=== PATIENT | female | born 1940 | race Caucasian/White ===

== ENCOUNTER 2017-08-16 18:11 | Emergency (ER) | payer MEDICARE ==
[2017-08-16 18:34] VITALS: BP 132/66
--- NOTE | 2017-08-16 18:38 | UC ---
HPI Febrile Illness - HPI Summary HPI Summary: 77 YEAR OLD FEMALE PRESENTS WITH COUGH, NASAL CONGESTION AND HEADACHE AFTER COMING HOME FROM A TRIP. - History of Current Complaint Chief Complaint: UCRespiratory Time Seen by Provider: 08/16/17 18:35 Hx Obtained From: Patient Onset/Duration: Started Hours Ago Timing: Constant Initial Severity: Moderate Current Severity: Moderate Pain Scale Used: 0-10 Numeric - 2 Aggravating Factors: Nothing Alleviating Factors: Nothing Associated Signs and Symptoms: Chills, Cough, Drainage - Allergy/Home Medications Allergies/Adverse Reactions: Allergies Allergy/AdvReac Type Severity Reaction Status Date / Time No Known Allergies Allergy Verified 08/16/17 18:34 PMH/Surg Hx/FS Hx/Imm Hx Previously Healthy: Yes Endocrine/Hematology History: Denies: Hx Diabetes, Hx Thyroid Disease Cardiovascular History: Denies: Hx Hypertension Respiratory History: Denies: Hx Asthma, Hx Chronic Obstructive Pulmonary Disease (COPD) GI History: Denies: Hx Ulcer Musculoskeletal History: Denies: Hx Osteoporosis - Cancer History Cancer Type, 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 mastectomy left 2007 Infectious Disease History: No Infectious Disease History: Denies: Hx Clostridium Difficile, Hx Hepatitis, Hx Human Immunodeficiency Virus (HIV), Hx of Known/Suspected MRSA, Hx Shingles, Hx Tuberculosis, Hx Known/ Suspected VRE, Hx Known/Suspected VRSA, History Other Infectious Disease, Traveled Outside the [place] in Last 30 Days - Social History Alcohol Use: Occasionally Substance Use Type: Reports: None Smoking Status (MU): Never Smoked Tobacco Review of Systems Constitutional: Negative Skin: Negative Eyes: Negative ENT: Sore Throat, Nasal Discharge, Sinus Congestion, Sinus Pain/Tenderness Respiratory: Cough Cardiovascular: Negative Gastrointestinal: Negative Genitourinary: Negative Motor: Negative Neurovascular: Negative Musculoskeletal: Negative Neurological: Negative Psychological: Negative All Other Systems Reviewed And Are Negative: Yes Physical Exam Triage Information Reviewed: Yes Vital Signs: Initial Vital Signs Temp 37.1 C 08/16/17 18:31 Pulse 77 08/16/17 18:31 Resp 18 08/16/17 18:31 BP 132/66 08/16/17 18:31 Pulse Ox 98 08/16/17 18:31 Eye Exam: Normal ENT: Positive: Pharyngeal erythema, Nasal congestion, Nasal drainage Dental Exam: Normal Neck exam: Normal Neck: Positive: 1 Respiratory: Positive: Wheezing Cardiovascular Exam: Normal Abdominal Exam: Normal Musculoskeletal Exam: Normal Neurological Exam: Normal Psychological Exam: Normal Skin Exam: Normal Course/Dx - Diagnoses Clinic Provider Diagnoses: SINUSITIS. ALLERGIC RHINITIS Discharge - Discharge Plan Condition: Stable Disposition: HOME Prescriptions: Azithromyxin DAV (NF) [Z-Dav (Zithromax) 250 mg tabs #6] 2 tab PO .TODAY, THEN 1 DAILY #6 tab LoraTADine TAB(NF) [Claritin 10 MG TAB(NF)] 10 mg PO DAILY #30 tab guaiFENesin/CODIEN 100MG-10MG* [Robitussin AC 100Mg-10Mg*] 5 ml PO Q6H PRN #120 ml MDD 20 ml PRN Reason: Cough Patient Education Materials: Sinusitis (ED) Referrals: Steffi Baker MD [Primary Care Provider] -
== END 2017-08-16 19:08 | disposition home or self-care (01) ==
LOC: UCEAST 18:11
DX: J30.9 Allergic rhinitis, unspecified (principal); J32.9 Chronic sinusitis, unspecified
CPT/HCPCS: 99212; G0463

== ENCOUNTER 2017-12-08 22:32 | Emergency (ER) | payer MEDICARE ==
[2017-12-08] MEDS ORDERED: Morphine INJ* 4 MG/ML 1 ML CARPUJECT IV ONE (22:52)
[2017-12-08] MEDS ORDERED: Ondansetron INJ* 2 MG/ML VIAL IV ONE (22:52)
[2017-12-08] MEDS ORDERED: NS 0.9% 500 ML* 500 ML IV SCH (23:00)
[2017-12-08 23:40] LABS: Hematocrit 38 % (35-47); Hemoglobin 13.1 g/dl (12.0-16.0); Mean Corpuscular HGB Conc 34 g/dl (31-36); Mean Corpuscular Hemoglobin 32 pg (27-31); Mean Corpuscular Volume 93 fL (80-97); Mean Platelet Volume 8 um3 (7.4-10.4); Platelet Count 201 10^3/ul (150-450); Red Blood Count 4.08 10^6/ul (4.0-5.4); Red Cell Distribution Width 13 % (10.5-15); White Blood Count 7.2 10^3/ul (3.5-10.8)
[2017-12-08] MEDS ORDERED: Lidocaine 2% EPI 1:200000 MPF* 20 ML VIAL ONE (23:40)
[2017-12-08] MEDS ORDERED: Lidocaine 2% EPI 1:200000 MPF* 20 ML VIAL INJ ONE ×2 (23:41)
--- NOTE | 2017-12-08 23:43 | ED ---
Phoenix Bashir Nilda, scribed for Jaycob Ruiz MD on 12/08/17 at 2309 . Adult Trauma - HPI Summary HPI Summary: This patient is a 77 year old F presenting to [facility] accompanied by son with a chief complaint of severe, sharp right wrist pain s/p slipping on ice and falling on wrist minutes ago. Pt states it hurts to move fingers, but denies LOC , head injury, and abd pain. The patient rates the pain 9/10 in severity. Symptoms aggravated movement and palpation and alleviated by rest. Pt denies blood thinners. Medications include vitamins. Pt is non-smoker and drinks ETOH occasionally (beer). Pt states last meal was 1830 where she also drank a quarter cup of beer. - History of Current Complaint Chief Complaint: EDExtremityUpper Stated Complaint: RT ARM INJURYC Hx Obtained From: Patient, Family/Credit Manager - son Mechanism of Injury: Fall Loss of Consciousness: no loss of consciousness Onset/Duration: Started Minutes Ago, Traumatic, Still Present Current Severity: Severe Pain Intensity: 9 Pain Scale Used: 0-10 Numeric Location: Extremities - right wrist Aggravating Factor(s): Movement, Palpation Alleviating Factor(s): Rest Associated Signs & Symptoms: Positive: Other: - hurts to move fingers, but denies LOC, head injury, and abd pain. - Allergy/Home Medications Allergies/Adverse Reactions: Allergies Allergy/AdvReac Type Severity Reaction Status Date / Time No Known Allergies Allergy Verified 08/16/17 18:34 PMH/Surg Hx/FS Hx/Imm Hx Endocrine/Hematology History: Denies: Hx Diabetes, Hx Thyroid Disease Cardiovascular History: Denies: Hx Hypertension Respiratory History: Denies: Hx Asthma, Hx Chronic Obstructive Pulmonary Disease (COPD) GI History: Reports: Other GI Disorders - ruptured gut Denies: Hx Ulcer Musculoskeletal History: Reports: Other Musculoskeletal History - ruptured lumbar disc Denies: Hx Osteoporosis - Cancer History Cancer Type, 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 mastectomy left 2007 Infectious Disease History: No Infectious Disease History: Denies: Hx Clostridium Difficile, Hx Hepatitis, Hx Human Immunodeficiency Virus (HIV), Hx of Known/Suspected MRSA, Hx Shingles, Hx Tuberculosis, Hx Known/ Suspected VRE, Hx Known/Suspected VRSA, History Other Infectious Disease, Traveled Outside the [place] in Last 30 Days - Family History Known Family History: Positive: Other - cancer - Social History Lives: With Family Alcohol Use: Occasionally Alcohol Amount: Beer tonight 183 Substance Use Type: Reports: None Smoking Status (MU): Never Smoked Tobacco Review of Systems Positive: Other - slipped on ice . Negative: Fever, Chills Negative: Erythema Negative: Sore Throat Negative: Palpitations, Chest Pain Negative: Shortness Of Breath, Cough Negative: Abdominal Pain, Vomiting, Nausea Negative: dysuria, hematuria Positive: Decreased ROM - right wrist, Other - pain with moving fingers of right hand, right wrist pain. Negative: Myalgia, Edema Negative: Rash Neurological: Other - negative dizziness, LOC, head injury All Other Systems Reviewed And Are Negative: Yes Physical Exam - Summary Physical Exam Summary: Constitutional: Well-developed, Well-nourished, Alert, Cooperative, + pain distress Skin: Warm, Dry HENT: Normocephalic; No Racoons eyes; No battles sign; No abrasion; No contusion ; No hemotympanum; No maxilla facial tenderness or instability; Dentition are smooth; No dental trauma; No trismus Eyes: EOM normal, PERRL Neck: Trachea is midline. No stridor; No JVD; No step off; No posterior cervical spine tenderness Cardio: Rhythm regular, rate normal Heart sounds normal; Intact distal pulses; The pedal pulses are 2+ and symmetric. Radial pulses are 2+ and symmetric. Pulmonary/Chest wall: Effort normal; Breath sounds normal; Equal chest rise; No flail segment; No rib tenderness; No sternal tenderness Abd: Soft, Appearance normal. No distension; No tenderness; No palpable pulsatile mass; No Cullens sign; No Barksdale-Turners sign Musculoskeletal: no tenderness at hips, ankles, shoulders, elbows and knees; No joint swelling; No vertebral body tenderness; No paraspinal tenderness; No step off or deformity of the spine; Pelvis is stable to lateral compression and rock ; Right wrist is dorsally deformed; pt is able to minimally flex her fingers, distal sensation, radial pulses present, cap refill less than 2 seconds to fingers Neuro: Alert, Oriented x3 : No blood at urethral meatus Psych: Mood and affect Normal Triage Information Reviewed: Yes Vital Signs On Initial Exam: Initial Vitals Temp Pulse Resp BP Pulse Ox 97.6 F 52 16 90/59 100 12/08/17 22:35 12/08/17 22:35 12/08/17 22:35 12/08/17 22:35 12/08/17 22:35 Vital Signs Reviewed: Yes - [place] Coma Scale Coma Scale Total: 15 Diagnostics - Vital Signs Vital Signs Temp Pulse Resp BP Pulse Ox 12/08/17 22:35 97.6 F 52 16 90/59 100 - Laboratory Lab Statement: Any lab studies that have been ordered have been reviewed, and results considered in the medical decision making process. Adult Trauma Course/Dx - Course Assessment/Plan: This patient is a 77 year old F presenting to [facility] accompanied by son with a chief complaint of severe, sharp right wrist pain s/p slipping on ice and falling on wrist minutes ago. Pt states limited ROM of right hand and fingers secondary to pain, but denies LOC, head injury, and abd pain. The patient rates the pain 9/10 in severity. Symptoms aggravated movement and palpation and alleviated by rest. Pt denies blood thinners. Medications include vitamins. Pt is non-smoker and drinks ETOH occasionally (beer). Pt states last meal was 1830 where she also drank a quarter cup of beer. Pt is s/ o to Dr. Rehman, pending shift change, awaiting wrist XR. Dx wrist fracture. - Diagnoses Provider Diagnoses: Wrist fracture Discharge - Discharge Plan Condition: Stable Disposition: OTHER Discharge Disposition Comment: s/o to Dr. Rehman, awaiting wrist XR. Referrals: Steffi Baker MD [Primary Care Provider] - The documentation as recorded by the Phoenix mcdonnell Nilda accurately reflects the service I personally performed and the decisions made by , Jaycob Ruiz MD.
[2017-12-08 23:52] LABS: EGFR Non-African American 50.7 (>60)
[2017-12-09 05:00] VITALS: BP 154/56
--- NOTE | 2017-12-09 08:08 | RAD ---
Indication: Right wrist injury. 3 views of the wrist demonstrates fracture of the distal radius with dorsal angulation and overriding of the fracture fragments. Fracture of the ulnar styloid process is noted. IMPRESSION: Fracture distal radius with overriding of the fracture fragments. Fracture of the ulnar styloid process.
--- NOTE | 2017-12-09 08:48 | RAD ---
Indication: Distal radius fracture. 3 views of the right wrist demonstrates reduction of the previously seen fracture of the distal radius. Fracture fragments are near anatomic alignment. There is a cast present which obscures bony detail. Angulation has been reduced. IMPRESSION: Reduction of previously seen fracture of the distal radius.
--- NOTE | 2017-12-09 09:46 | RAD ---
Amended report to correct indication. Indication: Right distal radius fracture. CT of the right wrist was obtained in the axial plane. Sagittal and coronal reconstructed images were obtained. There is fracture of the distal radius which is moderately comminuted. There is slight overriding of the fracture fragments. There is displacement dorsally of the distal fracture fragment approximately one half shafts width. Angulation appears to be reduced with some foreshortening. Fracture of the ulnar styloid process is noted. The remainder of the carpal bones are intact. There are some calcifications in the region of the triangle fibrocartilage which do not appear to be of bony origin and the possibility of CPPD should be considered from chondrocalcinosis. Degenerative changes of the trapezium first metacarpal joint is noted. The remainder of the metacarpals are unremarkable. IMPRESSION: Comminuted fracture distal radius with overriding of the fracture fragments. There is dorsal displacement and some foreshortening. Calcifications of the triangular fibrocartilage. Fracture of the ulnar styloid process. MTDD
--- NOTE | 2017-12-09 10:17 | CONS ---
CONSULTATION REPORT: DATE OF CONSULT: 12/09/17 REASON FOR CONSULT: Right wrist fracture. HISTORY OF PRESENT ILLNESS: The patient is a 77-year-old woman, right hand dominant, a , who li ves alone, but with her grown children living nearby, who likes to paint watercolors, and who has no prior history of right wrist pain, who slipped on the ice and fell on an outstretched right wrist thi s evening, 12/09/17. The patient complained of pain and deformity at the right wrist and came to emergency department at [facility]. Consultation was called by the emergency department staff to Orthopedics. This was after x-rays had been taken. PAST MEDICAL HISTORY: Bowel rupture of some sort, lumbar spine disk herniation, breast cancer. PAST SURGICAL HISTORY: Appendectomy; lumbar spine diskectomy; bowel surgery; excision, surgical for fallopian tube cancer; excision of acoustic neuroma; left mastectomy. MEDICATIONS: Calcium and other vitamins. ALLERGIES: RUBBING ALCOHOL (rash). SOCIAL HISTORY: Right hand dominant, lives alone. REVIEW OF SYSTEMS: No shortness of breath, chest pain, nausea, vomiting, or headache. No numbness o r tingling, right upper extremity. No other joint pain. No head or neck pain or loss of consciousnes s. PHYSICAL EXAM: Vital signs at 10:35 p.m., 12/08/17, or rather just 2 hours ago, the previous , are 97.6 degrees Fahrenheit tympanic; pulse rate 52; respiratory rate 16; blood pressure 90/59 , followed by 164/61; oxygen saturation 100%. No acute distress. Alert and oriented, appropriate mo od and affect, appropriate dress and hygiene, well coordinated bilateral upper and lower extremities. The patient was lying supine in a stretcher in the emergency room. Gait was not assessed. Right upper extremity shows soft tissue swelling about the right wrist. Significant deformity present . A dinner fork deformity to the maximum. Neurovascularly intact distally. Soft tissue swelling, mo derate, about the right wrist. Tenderness to palpation of the wrist. No elbow or shoulder tendernes s to palpation or pain with passive range of motion. Skin is intact. DIAGNOSTIC STUDIES: Imaging: Three x-ray views of the right wrist obtained in the emergency departm ent show a significant, proximally 100% displacement, translation dorsally of a distal radius fractur e fragment. The distal radius fracture line itself is rather close to the radiocarpal joint. Amount of dorsal displacement is quite significant. There is some shortening as well. ASSESSMENT: Right distal radius fracture, predominantly extraarticular, significant dorsal displacem ent. PLAN: 1. Given the patient's significant deformity and discomfort and the injury having happened within th e prior 2 hours, I asked the patient's permission to do a reduction first without any hematoma block. I did this to assess her pain level, partially reduce her fracture, and see if conscious sedation o r anything else would be required eventually for reduction. 2. Procedure: Closed reduction without the anesthesia. Verbal consent, sterile technique, tolerate d it well. I have performed a reduction procedure. This significantly improved the deformity of the right wrist such that it appeared almost anatomic with only a little bit of dinner fork deformity to it. 3. After obtaining a history and physical, I then proceeded to perform a proper hematoma block, hang the patient in fingertraps and performed a closed reduction. 4. Procedure: Hematoma block followed by closed reduction and splinting, right wrist. Verbal conse nt, sterile technique, tolerated it well. 8 cc of lidocaine 1% with epinephrine was injected into th e fracture site. I waited 5 minutes. I then placed the patient in fingertraps with 15 pounds of tra ction, longitudinal. After 5 minutes in the fingertraps, I then applied a volar dorsal sugar tong ri ght forearm splint. I allowed this to get fully hard and removed the patient from the traction. 5. I then sent the patient to x-ray to confirm reduction. If significant comminution was to be pres ent, I would then order a CT scan. 6. After imaging, the patient will be discharged home. 7. The patient will follow up with me in clinic next week. 8. Sling as needed with elevation and pain control. [id number]/[facility] #: [id number]
== END 2017-12-09 05:10 | disposition home or self-care (01) ==
LOC: ED 22:32
DX: S62.101A Fracture of unspecified carpal bone, right wrist, initial encounter for closed fracture (principal); M25.531 Pain in right wrist; W00.0XXA Fall on same level due to ice and snow, initial encounter; Y92.9 Unspecified place or not applicable
CPT/HCPCS: 36415; 80053; 85027; 99283; J2270; J2405

== ENCOUNTER → 2017-12-15 11:23 | Day surgery (SDC) | payer MEDICARE ==
[~2017-12-15 11:23] MED LIST: Acetaminophen TAB* 325 MG PO PRN; Buffered Lidocaine 0.9% SYRIN* 5 ML/SYR SYRINGE INTRADERM ONE; Buffered Lidocaine 0.9% SYRIN* 5 ML/SYR SYRINGE ONE; Bupivacaine 0.5% SDV PF* 10-30ML VIAL ONE; DiMENhydriNATE IV* 50 MG/ML VIAL IV PUSH PRN; HYDROmorphone INJ* 1 MG/ML CARPUJECT SYRINGE IV PRN; Mepivacaine 2% MPF (20 MG/ML)* 20 ML MPF ONE; Midazolam* 1 MG/ML 2 ML VIAL (2 MG) ONE; Naloxone* 0.4 MG/ML 1 ML VIAL IV PRN; Ondansetron INJ* 2 MG/ML VIAL IV PRN; ROPIVACAINE 5 MG/ML 30 ML BTL (0.5%) ONE; ceFAZolin 2 GM PREMIX (*) 2 GM/50 ML BAG IVPB ONE; fentaNYL* 50 MCG/ML 2 ML VIAL (100 MCG VIAL) IV PRN; fentaNYL* 50 MCG/ML 2 ML VIAL (100 MCG VIAL) ONE
--- NOTE | 2017-12-15 16:21 | RAD ---
CPT II Codes: 6045F INDICATION: Distal right radius fracture TECHNIQUE: Intraoperative fluoroscopy was provided during right distal radius ORIF FINDINGS: Neck spot films depict anatomic instillation of a distal right radius plate and screw fixator spanning the now anatomically aligned fracture site.. Fluoroscopy time: 77 seconds IMPRESSION: As above.
[2017-12-15 17:01] VITALS: BP 116/65
--- NOTE | 2017-12-18 15:28 | OP ---
DATE OF OPERATION: 12/15/17 [facility] DATE OF : 38 SURGEON: Bryson Capone MD. ENGINEERING AND SCIENTIFIC PROGRAMMER: ROBERT Pardo. A physician surveyor's assistant was required for the length of the procedure for positioning, retraction, assistance with instrumentation and closure. ANESTHESIOLOGIST: Griselda Bailey MD. ANESTHESIA: Light sedation, regional blocks, supraclavicular, 5 cc of local provided consisting of 0.5% Marcaine without epinephrine. PRE-OP DIAGNOSIS: Right distal radius fracture, comminuted, extraarticular, displaced. POST-OP DIAGNOSIS: Right distal radius fracture, comminuted, intraarticular, displaced. OPERATIVE PROCEDURE: 1. Open reduction internal fixation, right distal radius fracture, comminuted, intraarticular, three or more pieces. 2. Left distal forearm tenotomy, brachioradialis tendon. IV FLUIDS: 500 cc crystalloid. ANTIBIOTICS: Ancef 2 g IV. TOURNIQUET TIME: 117 minutes at 200 mmHg. SPECIMEN: None. IMPLANTS: Synthes volar locking plate, 3-hole, narrow. COMPLICATIONS: None. ESTIMATED BLOOD LOSS: Minimal. INDICATIONS FOR PROCEDURE: The patient is a 77-year-old woman, right hand dominant, a who lives alone, but who has adult children who live nearby who fell after slipping on ice onto a outstretched right hand and wrist on 12/09/17, six days prior to surgery. X-rays in the emergency department demonstrated a right distal radius fracture. Orthopedic surgery consult was called. When I first met the patient in the emergency department, she had a gross deformity, so severe that I worried about significant soft tissue swelling and bruising and I wondered if more than hematoma block might be eventually required for reduction. I, therefore, performed a partial reduction without anesthesia and then performed a hematoma block with finger trap usage, longitudinal traction, and a closed reduction maneuver and placed the patient in a forearm sugar tong splint. CT scan after reduction was obtained and the patient was told to follow up with me in clinic. I also obtained x-rays in clinic. The patient came to clinic on 12/12/17. Both x- rays and CT can showed significant improvement in position compared to the patient's injury x-rays; however, there was persistent radial displacement of a distal radial fracture fragment as well as significant loss of radial inclination and volar tilt. The patient's CT scan confirmed these findings as well. The patient and I briefly talked about nonoperative and operative management. It should be stated that patient also had osteopenia presumed on x-ray and CT imaging. We discussed risks and potential complications of surgery including bleeding, infection, nerve or blood vessel injury, tendon injury, wrist pain, stiffness, osteoarthritis, hardware failure. The patient opted to go forward with surgery. DESCRIPTION OF PROCEDURE: Preoperatively the patient signed a written consent. Operative extremity was marked in preoperative holding. The patient stated to anesthesiologist a desire to be as awake as possible. Therefore the plan was for minimal if any sedation and no intubation or LMA. The patient was given a supraclavicular nerve block, regional, by Dr. Bailey, see his notes for full details. The patient was brought back to the operating room, placed supine on operating room table. Dr. Bailey performed his regional block. The patient had the splint removed from the right upper extremity. The right upper extremity was then prepped with a chlorhexidine followed by ChloraPrep. Draping performed. Hand table had been attached to the table. Prior to prep and drape, a tourniquet had also been applied to the right upper arm. Surgical time-out was performed. The Esmarch was applied and the tourniquet was elevated to 200 mmHg. I picked a lower amount of pressure given the patient's age and it being upper extremity. I tested the block and it appeared to be working sufficiently as I pricked her skin with an Raj pickups near my surgical incision site. I made a surgical incision, longitudinal, skin, overlying FCR, approximately 8 cm long. Dissected with scissors through the subcutaneous tissue, minimal to the FCR. Incised the FCR sheath with knife and then scissors, retracted the FCR ulnarly. Incised the subsheath of the FCR with a knife and then scissors. I retracted FPL ulnarly with my fingers and then with an [facility] retractor. I exposed the pronator quadrates. Incised it along the radial most aspect of the distal radius, both proximal and distal to the main transverse fracture line. Appreciated a vertical fracture line creating an extra radiostyloid fracture fragment. This appeared to run intraarticular as seen on C-arm imaging that was brought in. I released the brachioradialis being careful not to harm any other tendons. I tried several reduction maneuvers and then assessed them on C-arm imaging. The distal radial fracture fragment several times with standard reduction would remain overly radial as well as there was diastasis at that vertical fracture line most distally. I then concentrated on aligning perfectly the ulnar border of the distal radius with a standard reduction technique. I also used a dental pick or [place] to close the gap or diastasis at the vertical fracture line. This resulted in what looked like an anatomic reduction on x-ray imaging visually. I found the reduction to be very unstable, so when not held together with my fingers it would re-displace. I sized the distal radius and found the narrow plate to be most appropriate. I picked a 3-hole plate given my desire for three proximal screws given the osteopenic bone. Plate was placed. K-wires were used proximally and distally. A non-locking screw was placed in the oval hole proximally. With K-wire removed distally, I moved the plate in the proximal distal direction until I liked exactly where it was located. I then tightened that proximal nonlocking screw. I performed reduction maneuver. Ulnar border of the distal radius was perfectly reduced, placed a nonlocking screw through one of the ulnar screw holes in the distal row of the plate, nonlocking. This was after a K-wire had been placed through the plate distally. With 2 nonlocking screws, one proximal and one distal, I reevaluated my reduction. There was still some gaping at the vertical fracture line. I reduced this with a [place] and then placed a locking screw into the radio-styloid process with visual and radiographic confirmation of good reduction. I liked the alignment of my distal radius and I liked the position of the plate. The remainder of the distal radius was filled with locking screws. Once I filled my distal radius plate with screws and I only had 1 screw proximally, my reduction got rotated a little bit. I re-reduced the fracture, placed a pin in the proximal most end of the plate and with the reduction back in place, placed my proximal locking screws. The distal nonlocking screw was replaced with a locking screw. The plate was noted to sit off of the bone just proximal to the transverse fracture line but I liked my reduction visually and radiographically. All screws seemed appropriate length. Irrigation. I decided not to repair the pronator quadratus to the subsheath of FCR, as I sometimes do, as it was particularly wispy and very close to the radial artery, the subsheath of the FCR. I next closed the subcutaneous tissue with buried simple stitches using Vicryl 3-0 suture. We closed the skin with a running stitch using nylon 4-0 suture. Xeroform, 4x4s, sterile Webril. The tourniquet was dropped. Additional Webril placed. A volar dorsal plaster short -arm splint was placed and overwrapped with an Ilya bandage with the wrist positioned in neutral. The patient was quite awake during most of the procedure actually speaking with us and asking an occasional question. Towards the very end of the procedure, he voiced some discomfort which we thought secondary to her feeling the tourniquet on the upper arm. Therefore, I believe Dr. Bailey sedated her slightly so she would be not be upset by that discomfort. The patient was awakened and brought to the PACU. There she was placed in a sling. DISPOSITION: Postoperatively, the patient is to remain in that dorsal splint. She can use the sling as needed. She will receive Keflex 1 tab by mouth 3 times a day for 7 days postoperatively. She was to receive Percocet for pain control. The patient will follow up with me approximately 10 days postoperatively. She will have a wound check, removal of stitches, and placement into a short-arm cast. I will likely choose a short-arm cast rather than a removable wrist brace just given her age and the amount of osteopenia appreciated intraoperatively. [id number]/[facility] #: [id number] Alex- [id number]/[facility] #: [id number] OSITO
--- NOTE | 2017-12-18 19:48 | OP ---
OPERATIVE REPORT: ADDENDUM: OPERATIVE PROCEDURE: 2. Left distal forearm tenotomy, brachioradialis tendon. [id number]/[facility] #: [id number] MTDD
== END | disposition home or self-care (01) ==
LOC: OR 11:23
PROVIDERS: ATTEND Orthopaedic Surgery
DX: S52.571A Other intraarticular fracture of lower end of right radius, initial encounter for closed fracture (principal); W00.0XXA Fall on same level due to ice and snow, initial encounter; Y92.9 Unspecified place or not applicable; Z85.3 Personal history of malignant neoplasm of breast; Z85.89 Personal history of malignant neoplasm of other organs and systems
CPT/HCPCS: 76000; C1713; C1776; J0670; J0690; J2250; J2795; J3010